=== PATIENT | female | born 2000 | race African-American/Black ===

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

== ENCOUNTER 2018-03-16 17:04 | Emergency (ER) | payer MEDICAID ==
[2018-03-16 17:17] VITALS: BP 136/82
--- NOTE | 2018-03-16 18:32 | UC ---
Eye Complaint HPI - HPI Summary HPI Summary: 18 y/o female presents to the urgent care c/o RT eye redness and crusting yellowish discharge since this morning. 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 Pt deneis eye pain, visual disturbances, photophobia, BARRAGAN, URI, SOB, chest pain, abdominal pain, N/V/D. - History of Current Complaint Chief Complaint: UCEye Stated Complaint: EYE IRRITATION Time Seen by Provider: 03/16/18 18:30 Hx Obtained From: Patient Hx Last Menstrual Period: ON CONTROL ?: No Onset/Duration: Gradual Onset, Lasting Hours - 12 hrs Timing: Constant Severity Initially: Mild Severity Currently: Mild Pain Intensity: 0 Pain Scale Used: 0-10 Numeric Location of Injury: Conjunctiva - RT Character: Foreign Body Sensation Aggravating Factor(s): Blinking Alleviating Factor(s): Nothing Associated Signs And Symptoms: Positive: Drainage (Purulent). Negative: Photophobia, Vision Impairment Bilateral, Fever, Swelling - Risk Factors Penetrating Injury Risk Factor: Negative - Allergies/Home Medications Allergies/Adverse Reactions: Allergies Allergy/AdvReac Type Severity Reaction Status Date / Time No Known Allergies Allergy Verified 03/16/18 17:19 PMH/Surg Hx/FS Hx/Imm Hx Previously Healthy: Yes Respiratory History: Asthma - Surgical History Surgical History: Yes Surgery Procedure, Year, and Place: breast removal surgery, knee surgery - Family History Known Family History: Positive: None - Pt denie - Social History Occupation: Employed Full-time Lives: With Family Alcohol Use: Rare Substance Use Type: Marijuana Substance Use Comment - Amount & Last Used: ONCE PER WEEK Smoking Status (MU): Never Smoked Tobacco Have You Smoked in the Last Year: No - Immunization History Most Recent Influenza Vaccination: unknown Most Recent Tetanus Shot: "should be up to date" Most Recent Pneumonia Vaccination: "should be up to date" Vaccination Up to Date: Yes Review of Systems Constitutional: Negative Skin: Negative Eyes: Eye Redness - RT eye w/ yellowish crusting discharge ENT: Negative Respiratory: Negative Cardiovascular: Negative Gastrointestinal: Negative Genitourinary: Negative Motor: Negative Neurovascular: Negative Musculoskeletal: Negative Neurological: Negative Psychological: Negative Is Patient Immunocompromised?: No All Other Systems Reviewed And Are Negative: Yes Physical Exam - Summary Physical Exam Summary: Vital Signs Reviewed: Yes General: Well appearing, well nourished female in no apparent pain distress Eyes: Positive:RT Conjunctiva Inflamed - Visual acuity: WNL,Visual thompson: full to confrontation. PERRLA, EOMI intact w/out limitation or complaint of pain. eyelashes w/ mild crusting yellowish dischare. No ciliary flush. No chemosis, No photophobia. Normal fundoscopic exam; no proptosis, exophthalmos, nystagmus. ENT: Positive: Normal ENT inspection, Hearing grossly normal, Pharynx normal, Nasal congestion, Nasal drainage - clear, TMs normal - B/L external ear canal clear , TM's WNL. Negative: Tonsillar swelling, Tonsillar exudate Neck: Positive: Supple, Nontender, No Lymphadenopathy Respiratory: Positive: Chest nontender, Lungs clear, Normal breath sounds, No respiratory distress Cardiovascular: Positive: RRR, No Murmur, Pulses Normal, Brisk Capillary Refill Abdomen Description: Positive: Nontender, No Organomegaly, Soft. Negative: CVA Tenderness (R), CVA Tenderness (L) Bowel Sounds: Positive: Present Musculoskeletal: Positive: Strength Intact, ROM Intact, No Edema Neurological Exam: Normal Psychological Exam: Normal Skin Exam: Normal Triage Information Reviewed: Yes Vital Signs: Initial Vital Signs Temp 98.1 F 03/16/18 17:14 Pulse 65 03/16/18 17:14 Resp 18 03/16/18 17:14 BP 136/82 03/16/18 17:14 Pulse Ox 100 03/16/18 17:14 Eye Complaint Course/Dx - Course Course Of Treatment: 18 y/o female presents to the urgent care c/o RT eye redness and crusting yellowish discharge since this morning. 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 Pt deneis eye pain, visual disturbances, photophobia, BARRAGAN , URI, SOB, chest pain, abdominal pain, N/V/D.Hx obtained. Pt w/ Rt eye bacterial conjunctivitis on examination.Pt Rx Erythromycin ophthalmic drops.Pt instructed how to apply medication and if symptoms do not improve, advised to return to the urgent care or f/u with PCP for further evaluation and treatment. Pt understood and agreed w/ plan of care. - Differential Dx/Diagnosis Differential Diagnosis/HQI/PQRI: Conjunctivitis, Periorbital Cellulitis, Orbital Cellulitis, Uveitis Provider Diagnoses: 1- Acute Bacterial conjunctivitis Discharge - Sign-Out/Discharge Documenting (check all that apply): Patient Departure - D/C home - Discharge Plan Condition: Stable Disposition: HOME Prescriptions: Erythromycin OPTH OINT* [Erythromycin 0.5% OPTH OINT*] 1 applic RIGHT EYE TID # 1 ophth.oint Patient Education Materials: Conjunctivitis (ED) Forms: *Work Release Referrals: Quentin Meléndez MD [Primary Care Provider] - If Needed Brad Hartman MD [Medical Doctor] - If Needed Additional Instructions: 1-Please apply ophthalmic drops as instructed and finish the full course of treatment to avoid recurrent infection. Encourage hand washing to avoid spreading 2-If you do not improve or if symptoms worsen please f/u with apparel embroidery digitizer o your PCP for further evaluation and treatment Per institutional requirements, I have reviewed the chart, however, I was not consulted specifically or made aware of this patient by the above midlevel provider. I did not personally evaluate, interact with , or disposition this patient. - Billing Disposition and Condition Condition: STABLE Disposition: Home
== END 2018-03-16 18:45 | disposition home or self-care (01) ==
LOC: UCEAST 17:04
DX: H10.31 Unspecified acute conjunctivitis, right eye (principal); J45.909 Unspecified asthma, uncomplicated
CPT/HCPCS: 99212; G0463

== ENCOUNTER 2018-06-21 14:27 | Emergency (ER) | payer MEDICAID, OTHER ==
[2018-06-21 14:37] VITALS: BP 134/81
--- NOTE | 2018-06-21 14:58 | UC ---
Throat Pain/Nasal Dominic HPI - HPI Summary HPI Summary: 18 yo female to male presents with complaints of a sore throat for the last 2 days. Pt says that they have a history of strep and tonsillitis. They saw an ENT in [place] and were advised to have the tonsils removed, but a follow up appt was never made. Recently over the last 2-3 days pt has had a sore throat and tonsillar enlargement. They are able to eat and drink, but is painful. Denies fever, chills, cough, SOB, chest pain, n/v, or rash. - History of Current Complaint Chief Complaint: UCRespiratory Stated Complaint: SORE THROAT Time Seen by Provider: 06/21/18 14:58 Hx Obtained From: Patient Hx Last Menstrual Period: ON CONTROL Onset/Duration: Gradual Onset Severity: Severe Pain Intensity: 8 Pain Scale Used: 0-10 Numeric - Allergies/Home Medications Allergies/Adverse Reactions: Allergies Allergy/AdvReac Type Severity Reaction Status Date / Time No Known Allergies Allergy Verified 06/21/18 14:37 PMH/Surg Hx/FS Hx/Imm Hx - Additional Past Medical History Additional PMH: None - Surgical History Surgical History: Yes Surgery Procedure, Year, and Place: breast removal surgery, knee surgery x3 - Family History Known Family History: Positive: None - Social History Occupation: Employed Full-time Lives: With Family Alcohol Use: Rare Substance Use Type: Marijuana Substance Use Comment - Amount & Last Used: ONCE PER WEEK Smoking Status (MU): Never Smoked Tobacco Have You Smoked in the Last Year: No - Immunization History Most Recent Influenza Vaccination: unknown Most Recent Tetanus Shot: "should be up to date" Most Recent Pneumonia Vaccination: "should be up to date" Vaccination Up to Date: Yes Review of Systems Constitutional: Negative Skin: Negative Eyes: Negative ENT: Sore Throat Respiratory: Negative Cardiovascular: Negative Gastrointestinal: Negative Neurovascular: Negative Neurological: Negative Psychological: Negative All Other Systems Reviewed And Are Negative: Yes Physical Exam - Summary Physical Exam Summary: GENERAL: NAD. WDWN. No pain distress. SKIN: No rashes, sores, lesions, or open wounds. HEENT: Head: AT/NC Eyes: Conjunctiva clear without inflammation or discharge. Ears: Hearing grossly normal. TMs intact, no bulging, erythema, or edema. Nose: Nasal mucosa pink and moist. NTTP maxillary and frontal sinus. Throat: Posterior oropharynx moderate erythema and 3+ tonsillar enlargement. Mild exudates. Uvula midline. No hoarse voice or muffled voice. NECK: Supple. Mild TTP tonsillar LAD CHEST: CTAB. No r/r/w. No accessory muscle use. Breathing comfortably and in no distress. CV: RRR. Without m/r/g. Pulses intact. Cap refill <2seconds NEURO: Alert. PSYCH: Age appropriate behavior. Triage Information Reviewed: Yes Vital Signs: Initial Vital Signs Temp 98.1 F 06/21/18 14:33 Pulse 80 06/21/18 14:33 Resp 18 06/21/18 14:33 BP 134/81 06/21/18 14:33 Pulse Ox 100 06/21/18 14:33 Vital Signs Reviewed: Yes Throat Pain/Nasal Course/Dx - Course Course Of Treatment: Tonsillitis - Differential Dx/Diagnosis Provider Diagnoses: Tonsillitis Discharge - Sign-Out/Discharge Documenting (check all that apply): Patient Departure All imaging exams completed and their final reports reviewed: No Studies - Discharge Plan Condition: Stable Disposition: HOME Prescriptions: Amoxicillin PO (*) [Amoxicillin 500 MG CAP*] 500 mg PO Q12H #20 cap Magic Mouth Was-ECHO/MAAL/LIDO* 5 ml SWISH SWAL QID PRN #100 ml PRN Reason: Pain predniSONE TAB* [Deltasone 20 MG TAB*] 40 mg PO DAILY #9 tab Patient Education Materials: Tonsillitis (ED) Referrals: Quentin Meléndez MD [Primary Care Provider] - Jovan Fowler MD [Medical Doctor] - As Soon As Possible Additional Instructions: If you develop a fever, shortness of breath, chest pain, new or worsening symptoms - please call your PCP or go to the ED. 1) Please call ENT at the number below to schedule a follow up appointment regarding your continued enlarged tonsils - Billing Disposition and Condition Condition: STABLE Disposition: Home
== END 2018-06-21 15:45 | disposition home or self-care (01) ==
LOC: UCEAST 14:27
DX: J03.90 Acute tonsillitis, unspecified (principal)
CPT/HCPCS: 87651; 99212; G0463

== ENCOUNTER 2019-02-07 06:27 | Day surgery (SDC) | payer MEDICAID ==
[~2019-02-07 06:27] MED LIST changes: -Buffered Lidocaine 0.9% SYRIN* 5 ML/SYR SYRINGE INTRADERM ONE; +Buffered Lidocaine 1% SYRIN* 1 ML/SYRINGE INTRADERM ONE; +Dexamethasone IV* 4 MG/ML 1 ML (4 MG) ONE; +Famotidine IV* 10 MG/ML 2 ML (20 mg) ONE; +Lactated Ringers 1000 ML Bag* 1,000 ML IV SCH
[2019-02-07] MEDS ORDERED: ceFAZolin 2 GM PREMIX in ORs 2 GM/50 ML BAG ONE ×2 (06:34)
[2019-02-07] MEDS ORDERED: Lidocaine 1% w EPI 1:200,000* 30 ML VIAL ONE ×2 (07:07)
[2019-02-07] MEDS ORDERED: Bupivacaine 0.25% SDV* 30 ML ONE (07:08)
[2019-02-07] MEDS ORDERED: Midazolam* 1 MG/ML 5 ML VIAL (5 MG) ONE ×2 (07:09)
[2019-02-07] MEDS ORDERED: fentaNYL* 50 MCG/ML 5 ML VIAL (250 MCG VIAL) ONE ×2 (07:09)
[2019-02-07] MEDS ORDERED: Atracurium* 10 MG/ML 10 ML VIAL ONE ×2 (07:09)
[2019-02-07] MEDS ORDERED: Propofol* 10 MG/ML 20 ML BTL ONE ×2 (07:14)
[2019-02-07] MEDS ORDERED: Ketorolac INJ* 30 MG/ML 1 ML VIAL ONE ×2 (07:14)
[2019-02-07] MEDS ORDERED: Lidocaine 2% PF * 5 ML VIAL ONE ×2 (07:14)
[2019-02-07] MEDS ORDERED: Ondansetron INJ* 2 MG/ML VIAL ONE ×2 (07:14)
[2019-02-07] MEDS ORDERED: fentaNYL* 50 MCG/ML 2 ML VIAL (100 MCG VIAL) ONE (07:58)
[2019-02-07] MEDS ORDERED: Ropivacaine 0.2% * 2 MG/ML VIAL ONE ×2 (07:59)
[2019-02-07] MEDS ORDERED: Glycopyrrolate IV* 0.2 MG/ML 1 ML VIAL ONE ×2 (08:00)
[2019-02-07] MEDS ORDERED: HYDROmorphone INJ1* 1 MG/ML SYRINGE IV PRN (08:01)
[2019-02-07] MEDS ORDERED: Naloxone* 0.4 MG/ML 1 ML VIAL IV PRN (08:01)
[2019-02-07] MEDS ORDERED: Scopolamine 1.5 mg* PATCH TRANSDERM PRN (08:01)
[2019-02-07] MEDS ORDERED: oxyCODONE/Acetamin 5/325 MG* TAB PO PRN (08:01)
[2019-02-07] MEDS ORDERED: Levalbuterol 0.63MG/3ML NEB* UNIT OF USE INH PRN (08:01)
[2019-02-07] MEDS ORDERED: Ondansetron INJ* 2 MG/ML VIAL IV PRN (08:01)
[2019-02-07] MEDS ORDERED: fentaNYL* 50 MCG/ML 2 ML VIAL (100 MCG VIAL) IV PRN (08:01)
[2019-02-07] MEDS ORDERED: DiMENhydriNATE IV* 50 MG/ML VIAL IV PUSH PRN (08:01)
[2019-02-07 09:33] VITALS: BP 133/76
--- NOTE | 2019-02-07 12:41 | OP ---
DATE OF OPERATION: 02/07/19 - [facility] DATE OF : 89 SURGEON: Letty Maciel MD DIETIST: SANDI Onofre. An child care assistant was needed for the entirety of the case to help with positioning, retraction, and was utilized throughout all portions of the case. ANESTHESIOLOGIST: Dr. Matos. ANESTHESIA: General. PRE-OP DIAGNOSIS: Right knee grade 3 rupture of his previous anterior cruciate ligament reconstruction. POST-OP DIAGNOSIS: Right knee grade 3 rupture of his previous anterior cruciate ligament reconstruction, also included lateral meniscal fraying and medial meniscus tear. OPERATIVE PROCEDURE: Right knee arthroscopy with: 1. Partial lateral meniscectomy, medial meniscus rasping, and bone grafting of the ACL tunnel and posterior tibial tunnel with DBX and cancellous chips. 2. Removal of hardware. COMPLICATIONS: None. ESTIMATED BLOOD LOSS: Minimal. INDICATIONS: Monica Fernández is a 18-year-old male who had a previous ACL construction with hamstring autograft. He did well initially and then over New Year's slipped on foot and injured the knee again. The patient then was found to have instability, started to have medially based pain. He followed with clinic, underwent MRI and was diagnosed with ACL rupture with retained hardware. The patient had tunnel widening. A CT scan was done. It found that 5 mm of widening of the femoral tunnel which is acceptable, but there is about 1.1 cm of some portions of the tibial tunnel. The discussion was made with the patient that it would be better to proceed with bone grafting the tunnel in staged procedures so that there is good bone stocking, better quality healing, and he elected to proceed. The risks and benefits were discussed at length including but not limited to bleeding, infection; damage to nerves, vessels, surrounding structures; wound nonhealing; persistent pain; need for surgery; scarring; stiffness; incomplete relief of symptoms; risk of anesthesia. DESCRIPTION OF PROCEDURE: The patient was greeted in the preoperative area by the attending surgeon. The correct extremity was marked and consent was confirmed. The patient was brought back to the operating suite, where he was placed in supine position on the operating table. He then underwent general anesthesia with endotracheal intubation, after which he was appropriately positioned in the bed. A beanbag was placed to keep the knee at 90. Lateral post positioned. Unsterile tourniquet was placed high in the proximal thigh. Right leg was prepped and draped in the usual sterile fashion beginning with chlorhexidine soap, scrub, and alcohol wipe, and a final prep with ChloraPrep. After appropriate surgical pause indicating side, site, procedure, and administration of antibiotics, the knee was intra-articularly injected with 1% lidocaine with epi. The lateral portal was then made using 11 blade. Scope was introduced into the joint. There was abundant scar tissue in the joint. There was 1 remnant of the hamstring graft still intact. Tunnels were found to be acceptable. The anteromedial portal was made in an outside-in fashion. Electrocautery device was used to do small lysis of adhesions. Shaver was used to debride back any ACL remnant and fragments. The soft tissue that was adhered to the top of the tibial graft was then identified. There was some bony overgrowth at that port. The diagnostic arthroscopy was then done. There was fissuring of the medial femoral condyle weightbearing zone, which showed grade 1 changes. The medial meniscus was intact except for the posterior aspect of the root, there was undersurface tearing. This was then rasped to allow for bony bleeding for healing as this was not a full-thickness tear. If he does still have this at the next surgery, we may consider a full meniscus repair. The lateral compartment was examined, had grade 0 to 1 changes. Lateral meniscus had unstable fraying as well as the body of the meniscus was debrided back using the shaver. The patellofemoral joint was examined, had 0 to 1 changes. The gutters were intact. Mark were used again to debride the remnant of the ACL. The electrocautery device was used to skeletonize the lateral femoral wall. The graft site was identified. It was found to have fair amount of bone around around there. It was then roughed up using the rasp and the shaver to allow for bleeding and healing. Decision was made to not have to bone graft this portion. Attention was directed to tibial portion. While it was not apparent on the arthroscopic side, intraarticular side, that there is a large cavernous lesion, the decision was made to open the previous tibial incision. The scope was removed from the joint. The 15 blade was used to make previous incision opening, where the hamstring harvest and the tibial tunnel was placed. The soft tissues were exposed to expose the bone. The previous hamstring graft remnant was identified. The screw also was identified. This was then carefully tried to be removed or loosened using the [employer] biocomposite screwdriver. The screwdriver did not have purchase and so that the piece had to be removed piecemeal. After this was done, the curette was then used to interrogate the tunnel. This allowed for more removing of the biocomposite graft as well as remaining of the soft tissue. At this point, the curette was then used to remove some of the excess fragments and it was found to connect the intraarticular portion. The scope was brought back to the joint. This was visualized. The tunnel was then carefully widened using curettes and then the full-bore drill reamer beginning size 7 and a size 8 and size 9 drill was used to help remove any of the excess hamstring graft. The rongeur was also used to help remove any of the excess hamstring. The rasp was then used to rough up the bone edges. This was then thoroughly irrigated and lavaged, any excess remnant or hamstring was removed using rongeur and the curette. After this was done, 5 cc of cancellous bone chips and DBX were then mixed together to make a putty. This material was then impacted into the tunnel with care to not penetrate the intraarticular surface. Past the intraarticular surface, this was packed in with good apposition and all the way to the end of the tibial tunnel. The scope was brought back to the joint with the fluid returned, there was no evidence of fragments in the joint itself and the tunnel was found to be appropriately approximated. At this point, final images were obtained. The scope was then placed throughout the remainder of the joint to make sure there was no loose debris. The wound was then copiously irrigated with sterile saline. The portals were closed with 3-0 nylon. The anteromedial wound was closed in layers with 3-0 Monocryl and 3-0 nylon. Sterile dressings were applied. A Cryo/Cuff and a hinged knee brace were applied. He was awoken from anesthesia and transferred to the PACU in stable condition. POSTOPERATIVE PLAN: He will be nonweightbearing. He will be range of motion as tolerated. Discharged on pain medications, antibiotics. DVT prophylaxis was considered but deferred, but he will be placed on aspirin. I will see the patient back in 10 to 14 days for wound check as well as x-rays, nonweightbearing. [id number]/[facility] #: [id number]
== END 2019-02-07 10:05 | disposition home or self-care (01) ==
LOC: OREAST 06:27
PROVIDERS: ATTEND Orthopaedic Surgery
DX: S83.511D Sprain of anterior cruciate ligament of right knee, subsequent encounter (principal); S83.241D Other tear of medial meniscus, current injury, right knee, subsequent encounter; W18.49XD Other slipping, tripping and stumbling without falling, subsequent encounter; Y92.89 Other specified places as the place of occurrence of the external cause; J45.909 Unspecified asthma, uncomplicated; E66.9 Obesity, unspecified
CPT/HCPCS: C1776; C9359; J0690; J1100; J1885; J2001; J2250; J2405; J2704; J2795; J3010; J3490